=== PATIENT | male | born 1960 | race Caucasian/White ===

== ENCOUNTER 2017-01-10 12:10 | Outpatient (CLI) | payer MEDICAID | END 2017-01-10 12:11 | disposition home or self-care (01) | LOC: BICULT 12:10 | PROVIDERS: ATTEND Family Medicine | DX: R10.9 Unspecified abdominal pain (principal); N28.1 Cyst of kidney, acquired | CPT/HCPCS: 76705 ==

== ENCOUNTER 2021-07-24 10:03 | Outpatient (CLI) | payer OTHER | END 2021-07-24 10:04 | disposition home or self-care (01) | LOC: BICCT 10:03 | PROVIDERS: ATTEND Family Medicine | DX: Z12.2 Encounter for screening for malignant neoplasm of respiratory organs (principal); F17.210 Nicotine dependence, cigarettes, uncomplicated | CPT/HCPCS: 71271 ==

== ENCOUNTER 2022-01-13 09:37 | Outpatient (CLI) | payer OTHER | END 2022-01-13 09:38 | disposition home or self-care (01) | LOC: RAD 09:37 | PROVIDERS: ATTEND Internal Medicine Critical Care Medicine | DX: R06.00 Dyspnea, unspecified (principal) | CPT/HCPCS: 71046 ==

== ENCOUNTER 2023-03-23 09:49 | Outpatient (CLI) | payer OTHER | END 2023-03-23 09:50 | disposition home or self-care (01) | LOC: BICCT 09:49 | PROVIDERS: ATTEND Internal Medicine Critical Care Medicine | DX: Z12.2 Encounter for screening for malignant neoplasm of respiratory organs (principal); F17.200 Nicotine dependence, unspecified, uncomplicated | CPT/HCPCS: 71271 ==

== ENCOUNTER 2023-06-30 09:23 | Outpatient (CLI) | payer OTHER | END 2023-06-30 09:24 | disposition home or self-care (01) | LOC: BICULT 09:23 | PROVIDERS: ATTEND Urology | DX: Z87.438 Personal history of other diseases of male genital organs (principal); N44.2 Benign cyst of testis; R93.89 Abnormal findings on diagnostic imaging of other specified body structures | CPT/HCPCS: 76870; 93976 ==

== ENCOUNTER 2023-07-06 09:43 | Outpatient (CLI) | payer OTHER | END 2023-07-06 09:44 | disposition home or self-care (01) | LOC: BICMAMMO 09:43 | PROVIDERS: ATTEND Nurse Practitioner | DX: N63.0 Unspecified lump in unspecified breast (principal) | CPT/HCPCS: 77066; G0279 ==

== ENCOUNTER 2023-11-22 09:40 | Outpatient (CLI) | payer OTHER | END 2023-11-22 09:41 | disposition home or self-care (01) | LOC: BICULT 09:40 | PROVIDERS: ATTEND Urology | DX: N52.9 Male erectile dysfunction, unspecified (principal); N40.1 Benign prostatic hyperplasia with lower urinary tract symptoms; N44.2 Benign cyst of testis; N50.89 Other specified disorders of the male genital organs; R93.89 Abnormal findings on diagnostic imaging of other specified body structures | CPT/HCPCS: 36415; 76870; 80048; 81001; 82105; 84702; 87086; 93976 ==

== ENCOUNTER 2024-03-23 08:47 | Outpatient (CLI) | payer OTHER | END 2024-03-23 08:48 | disposition home or self-care (01) | LOC: BICCT 08:47 | PROVIDERS: ATTEND Internal Medicine Critical Care Medicine | DX: Z12.2 Encounter for screening for malignant neoplasm of respiratory organs (principal); F17.218 Nicotine dependence, cigarettes, with other nicotine-induced disorders; F17.200 Nicotine dependence, unspecified, uncomplicated; J44.9 Chronic obstructive pulmonary disease, unspecified | CPT/HCPCS: 71271 ==

== ENCOUNTER 2024-06-21 09:46 | Outpatient (CLI) | payer OTHER | END 2024-06-21 09:47 | disposition home or self-care (01) | LOC: BICRAD 09:46 | PROVIDERS: ATTEND Student in an Organized Health Care Education/Training Program | DX: M47.26 Other spondylosis with radiculopathy, lumbar region (principal); M47.817 Spondylosis without myelopathy or radiculopathy, lumbosacral region | CPT/HCPCS: 72100 ==